=== PATIENT | female | born 2000 | race Caucasian/White ===

== ENCOUNTER 2022-10-19 21:25 | Emergency (ER) | payer OTHER | END 2022-10-19 22:41 | disposition home or self-care (01) | LOC: FB.ED 21:25 | DX: S93.402A Sprain of unspecified ligament of left ankle, initial encounter (principal); S93.602A Unspecified sprain of left foot, initial encounter; X50.9XXA Other and unspecified overexertion or strenuous movements or postures, initial encounter; Y93.64 Activity, baseball | CPT/HCPCS: 73610-LT; 99282; 99283 ==